=== PATIENT | female | born 1980 | race Two or more races ===

== ENCOUNTER 2017-01-16 12:58 | Emergency (ER) | payer OTHER ==
[2017-01-16 13:16] VITALS: TEMP 98.7; BMI 36.0
--- NOTE | 2017-01-16 16:01 | PDOC ---
History of Present Illness - General History Source: Patient Exam Limitations: No Limitations - History of Present Illness Initial Comments: 01/16/17 17:05 The patient is a 36 year old female, LMP 01/06/17, with no significant past medical history, who presents to the ER with throat tightness and right abdominal pain that radiates to the right flank for several days. Patient states she developed throat tightness two weeks ago with burning in the chest that rises up. She states she developed right upper quadrant pain that radiates to the right flank several days ago. Patient states she has an IUD. She denies nausea, vomiting, diarrhea, fever, chills, or cough. <Alia Jarquin - Last Filed: 01/16/17 17:07> <Maria Esther Torres - Last Filed: 01/16/17 21:36> - General Chief Complaint: Pain, Acute Stated Complaint: ABD PAIN THROAT PAIN, RT SIDE PAIN Time Seen by Provider: 01/16/17 15:22 Past History <Alia Jarquin - Last Filed: 01/16/17 17:07> - Past Medical History Asthma: No Cancer: No Cardiac Disorders: No Diabetes: No (DENIES) HTN: No Suicide Attempt (Hx): No Seizures: No Thyroid Disease: No - Surgical History Abdominal Surgery: Yes (ENDOMETRIOSIS) - Immunization History TDAP Vaccination: No Immunization Up to Date: Yes - Psycho/Social/Smoking Cessation Hx Anxiety: No Suicidal Ideation: No Smoking History: Never smoked Have you smoked in the past 12 months: No Information on smoking cessation initiated: No Hx Alcohol Use: No Drug/Substance Use Hx: No Substance Use Type: None Hx Substance Use Treatment: No <Maria Esther Torres - Last Filed: 01/16/17 21:36> - Past Medical History Allergies/Adverse Reactions: Allergies Allergy/AdvReac Type Severity Reaction Status Date / Time No Known Drug Allergies Allergy Verified 01/16/17 13:11 Home Medications: Ambulatory Orders Famotidine [Pepcid -] 20 mg PO DAILY #30 tablet 01/16/17 Review of Systems - Review of Systems Able to Perform ROS?: Yes Comments:: 01/16/17 17:05 GENERAL/CONSTITUTIONAL: No fever or chills. No weakness. HEAD, EYES, EARS, NOSE AND THROAT: Throat tightness. No change in vision. No ear pain or discharge. CARDIOVASCULAR: No chest pain or shortness of breath. RESPIRATORY: No cough, wheezing, or hemoptysis. GASTROINTESTINAL: RUQ pain. No nausea, vomiting, diarrhea or constipation. GENITOURINARY: No dysuria, frequency, or change in urination. MUSCULOSKELETAL: No joint or muscle swelling or pain. No neck or back pain. SKIN: No rash NEUROLOGIC: No headache, vertigo, loss of consciousness, or change in strength/ sensation. ENDOCRINE: No increased thirst. No abnormal weight change. HEMATOLOGIC/LYMPHATIC: No anemia, easy bleeding, or history of blood clots. ALLERGIC/IMMUNOLOGIC: No hives or skin allergy. <Njs,Alia - Last Filed: 01/16/17 17:07> *Physical Exam - Vital Signs Last Vital Signs Temp Pulse Resp BP Pulse Ox 98.7 F 87 18 128/83 100 01/16/17 13:13 01/16/17 13:13 01/16/17 13:13 01/16/17 13:13 01/16/17 13:13 - Physical Exam Comments: 01/16/17 17:06 GENERAL: Awake, alert, and fully oriented, in no acute distress HEAD: No signs of trauma EYES: PERRLA, EOMI, sclera anicteric, conjunctiva clear ENT: Auricles normal inspection, hearing grossly normal, nares patent, oropharynx clear without exudates. Moist mucosa NECK: Normal ROM, supple, no lymphadenopathy, JVD, or masses LUNGS: Breath sounds equal, clear to auscultation bilaterally. No wheezes, and no crackles HEART: Regular rate and rhythm, normal S1 and S2, no murmurs, rubs or gallops ABDOMEN: RUQ tenderness with guarding, no rebound. Soft, normoactive bowel sounds. No rebound. No masses EXTREMITIES: Normal range of motion, no edema. No clubbing or cyanosis. No cords, erythema, or tenderness NEUROLOGICAL: Cranial nerves II through XII grossly intact. Normal speech, normal gait SKIN: Warm, Dry, normal turgor, no rashes or lesions noted. <Njs,Alia - Last Filed: 01/16/17 17:07> - Vital Signs Last Vital Signs Temp Pulse Resp BP Pulse Ox 98.7 F 87 18 128/83 100 01/16/17 13:13 01/16/17 13:13 01/16/17 13:13 01/16/17 13:13 01/16/17 13:13 <Maria Esther Torres - Last Filed: 01/16/17 21:36> ED Treatment Course - LABORATORY CBC & Chemistry Diagram: 01/16/17 16:20 01/16/17 16:20 - ADDITIONAL ORDERS Additional order review: Laboratory Results 01/16/17 01/16/17 16:20 16:20 Urine Color Ltyellow Urine Appearance Clear Urine pH 5.0 D Ur Specific [place] 1.016 Urine Protein Negative Urine Glucose (UA) Negative Urine Ketones Trace H Urine Blood Negative Urine Nitrite Negative Urine Bilirubin Negative Urine Urobilinogen Negative Ur Leukocyte Esterase Negative Urine HCG, Qual Negative 01/16/17 16:20 RBC 4.57 D MCV 91.1 MCHC 32.7 RDW 13.7 MPV 10.0 Neutrophils % 70.7 Lymphocytes % 23.3 D Monocytes % 5.1 Eosinophils % 0.4 D Basophils % 0.5 D - Medications Given in the ED: ED Medications Discontinued Medications Generic Name Dose Route Start Last Admin Trade Name Freq PRN Reason Stop Dose Admin Famotidine/Sodium Chloride 50 mls @ 100 mls/hr 01/16/17 16:02 01/16/17 16:32 Pepcid 20 Mg Premixed Ivpb - IVPB 01/16/17 16:31 100 mls/hr ONCE ONE Administration Sodium Chloride 1,000 mls @ 1,000 mls/hr 01/16/17 16:02 01/16/17 16:32 Normal Saline - IV 01/16/17 17:01 1,000 mls/hr ASDIR STA Administration <UtsAlia - Last Filed: 01/16/17 17:07> - LABORATORY CBC & Chemistry Diagram: 01/16/17 16:20 01/16/17 16:20 <Maria Esther Torres - Last Filed: 01/16/17 21:36> Medical Decision Making - Medical Decision Making 01/16/17 17:[address] Smith at 5pm shift change. Presented with abd pain associated with PO intake. CBC and UA resulted, CMP is pending. She declined pain medication. I have given H2 britney, as she has been having heartburn symptoms. She is currently in ultrasound for RUQ sono. DDx includes biliary colic, acute nnamdi, GERD. Reassess after ultrasound. <Maria Esther Torres - Last Filed: 01/16/17 21:36> *DC/Admit/Observation/Transfer - Attestations Scribe Attestion: 01/16/17 17:06 Documentation prepared by Alia Jarquin, acting as medical case manager for Maria Esther Torres MD. <Alia Jarquin - Last Filed: 01/16/17 17:07> <Maria Esther Torres - Last Filed: 01/16/17 21:36> Diagnosis at time of Disposition: Epigastric pain - Discharge Dispostion Disposition: HOME Condition at time of disposition: Stable - Prescriptions Prescriptions: Famotidine [Pepcid -] 20 mg PO DAILY #30 tablet - Referrals Referrals: Demarcus Gutierrez MD [Primary Care Provider] - - Patient Instructions Printed Discharge Instructions: DI for Abdominal Pain-Adult Additional Instructions: Please follow-up with your primary care physician within one week. You're being prescribed Pepcid 20 mgplease take 1 tablet daily for the next 30 days. Return to the emergency department if your symptoms persist, worsen, or new symptoms arise.
[2017-01-16] MEDS ORDERED: SODIUM CHLORIDE 1,000 ML IV STA (16:02)
[2017-01-16] MEDS ORDERED: FAMOTIDINE 20 MG/50 ML IVPB 50 ML IVPB ONE ×2 (16:02→16:29)
[2017-01-16 16:30] LABS: BASOPHIL 0.5 % (0-2.0); EOSINOPHIL 0.4 % (0-4.5); MCH 29.8 pg (25.7-33.7); MCHC 32.7 g/dl (32.0-36.0); MEAN CELL VOLUME 91.1 fl (80-96); NEUTROPHILS 70.7 % (42.8-82.8); PLATELET COUNT 200 K/MM3 (134-434); RDW 13.7 % (11.6-15.6); WHITE BLOOD COUNT 12.9 K/mm3 (4.0-10.0)
[2017-01-16 16:41] LABS: URINE APPEARANCE CLEAR; URINE BILIRUBIN NEGATIVE (NEGATIVE); URINE BLOOD NEGATIVE (NEGATIVE); URINE COLOR LTYELLOW; URINE GLUCOSE (UA) NEGATIVE (NEGATIVE); URINE KETONE TRACE (NEGATIVE); URINE LEUK ESTERASE NEGATIVE (NEGATIVE); URINE NITRITE NEGATIVE (NEGATIVE); URINE PROTEIN NEGATIVE (NEGATIVE); URINE UROBILINOGEN NEGATIVE E.U./dl (0.2-1.0)
[2017-01-16 17:02] LABS: ALBUMIN 4.1 g/dl (3.4-5.0); ANION GAP 9 (8-16); BILIRUBIN,TOTAL 0.3 mg/dL (0.2-1.0); CO2 26 mmol/L (21-32); CREATININE 0.7 mg/dL (0.55-1.02); GLUCOSE,RANDOM 88 mg/dL (74-106); SGOT/AST 12 U/L (15-37); SGPT/ALT 24 U/L (12-78); TOT PROT 7.4 g/dl (6.4-8.2)
[2017-01-16 17:03] LABS: ALK PHOS 83 U/L (45-117)
--- NOTE | 2017-01-16 19:06 | PDOC ---
*Physical Exam - Vital Signs Last Vital Signs Temp Pulse Resp BP Pulse Ox 98.7 F 108 H 19 157/74 100 01/16/17 13:13 01/16/17 17:13 01/16/17 17:13 01/16/17 17:13 01/16/17 17:13 ED Treatment Course - LABORATORY CBC & Chemistry Diagram: 01/16/17 16:20 01/16/17 16:20 - ADDITIONAL ORDERS Additional order review: Laboratory Results 01/16/17 01/16/17 01/16/17 16:20 16:20 16:20 Sodium 138 Potassium 4.0 Chloride 103 Carbon Dioxide 26 Anion Gap 9 BUN 12 D Creatinine 0.7 D Creat Clearance w eGFR > 60 Random Glucose 88 D Calcium 9.0 Total Bilirubin 0.3 D AST 12 L ALT 24 Alkaline Phosphatase 83 Total Protein 7.4 D Albumin 4.1 D Lipase 72 L Urine Color Ltyellow Urine Appearance Clear Urine pH 5.0 D Ur Specific [place] 1.016 Urine Protein Negative Urine Glucose (UA) Negative Urine Ketones Trace H Urine Blood Negative Urine Nitrite Negative Urine Bilirubin Negative Urine Urobilinogen Negative Ur Leukocyte Esterase Negative Urine HCG, Qual Negative 01/16/17 16:20 RBC 4.57 D MCV 91.1 MCHC 32.7 RDW 13.7 MPV 10.0 Neutrophils % 70.7 Lymphocytes % 23.3 D Monocytes % 5.1 Eosinophils % 0.4 D Basophils % 0.5 D - Medications Given in the ED: ED Medications Discontinued Medications Generic Name Dose Route Start Last Admin Trade Name Freq PRN Reason Stop Dose Admin Famotidine/Sodium Chloride 50 mls @ 100 mls/hr 01/16/17 16:02 01/16/17 16:32 Pepcid 20 Mg Premixed Ivpb - IVPB 01/16/17 16:31 100 mls/hr ONCE ONE Administration Sodium Chloride 1,000 mls @ 1,000 mls/hr 01/16/17 16:02 01/16/17 16:32 Normal Saline - IV 01/16/17 17:01 1,000 mls/hr ASDIR STA Administration Progress Note - Progress Note Progress Note: This patient was endorsed to me at [address] Torres. The patient is a 36- year-old female who presented to the emergency Department with complaints of epigastric and right upper quadrant pain. Labs are significant for an elevated white blood cell count and therefore a right upper quadrant ultrasound was obtained. The ultrasound showed a normal gallbladder with no stones or sludge within the gallbladder. Abnormal gallbladder wall and a normal common bile duct. I have reevaluated the patient at this time and she is feeling improved. Her abdomen is soft and nontender. The patient feels that the Pepcid has helped her. I will discharge home with Pepcid 20 mg by mouth daily. I have advised the patient to follow-up with Dr. Gutierrez within the next week. I have also advised the patient to return to the emergency department if her symptoms persist, worsen, or new symptoms arise. *DC/Admit/Observation/Transfer Diagnosis at time of Disposition: Epigastric pain - Discharge Dispostion Disposition: HOME Condition at time of disposition: Stable Admit: No - Prescriptions Prescriptions: Famotidine [Pepcid -] 20 mg PO DAILY #30 tablet - Referrals Referrals: Demarcus Gutierrez MD [Primary Care Provider] - - Patient Instructions Additional Instructions: Please follow-up with your primary care physician within one week. You're being prescribed Pepcid 20 mgplease take 1 tablet daily for the next 30 days. Return to the emergency department if your symptoms persist, worsen, or new symptoms arise. - Post Discharge Activity
[2017-01-16 19:16] VITALS: BP 130/80; PULSE 93
== END 2017-01-16 20:30 | disposition home or self-care (01) ==
LOC: JER 12:58
PROC: 3E033GC Introduction of Other Therapeutic Substance into Peripheral Vein, Percutaneous Approach (ICD-10-PCS; principal; 2017-01-16)
DX: R10.11 Right upper quadrant pain (principal)
CPT/HCPCS: 36415; 76705-TC; 80053; 81003; 83690; 84703; 85025; 99282-25

== ENCOUNTER 2019-08-13 10:30 | Emergency (ER) | payer OTHER ==
[2019-08-13 10:34] VITALS: TEMP 97.4; BMI 41.9
[2019-08-13] MEDS ORDERED: SODIUM CHLORIDE 1,000 ML IV STA ×2 (11:08→12:19)
[2019-08-13] MEDS ORDERED: ONDANSETRON 4 MG/2 ML VIAL IVPUSH ONE (11:08)
[2019-08-13] MEDS ORDERED: KETOROLAC TROMETHAMINE 30 MG/1 ML VIAL IVPUSH ONE (11:08)
[2019-08-13] MEDS ORDERED: KETOROLAC TROMETHAMINE 30 MG/1 ML VIAL ONE (11:11)
[2019-08-13] MEDS ORDERED: ONDANSETRON 4 MG/2 ML VIAL ONE (11:11)
[2019-08-13 11:13] LABS: EPI CELLS 12.9 /HPF (0-5/HPF); HYALINE CASTS 8 /lpf (0-8); URINE APPEARANCE CLOUDY; URINE BACTERIA 299.4 /hpf (NEGATIVE); URINE BILIRUBIN NEGATIVE (NEGATIVE); URINE COLOR YELLOW; URINE GLUCOSE (UA) NEGATIVE (NEGATIVE); URINE KETONE TRACE (NEGATIVE); URINE LEUK ESTERASE NEGATIVE (NEGATIVE); URINE NITRITE NEGATIVE (NEGATIVE); URINE PROTEIN 1+ (NEGATIVE); URINE RBC 18 /hpf (0-4); URINE WBC 4 /hpf (0-5)
[2019-08-13 11:32] LABS: BASO % 0.4 % (0-2.0); EOS % 2.6 % (0-4.5); HEMATOCRIT 39.1 % (32.4-45.2); HEMOGLOBIN 12.8 GM/dL (10.7-15.3); MCH 30.8 pg (25.7-33.7); MCHC 32.8 g/dl (32.0-36.0); MEAN PLT VOLUME 9.7 fl (7.5-11.1); MONO % 4.3 % (3.8-10.2); NEUT % 65.7 % (42.8-82.8); PLATELET COUNT 217 K/MM3 (134-434); RBC 4.16 M/mm3 (3.60-5.2); RDW 13.4 % (11.6-15.6); WHITE BLOOD COUNT 11.7 K/mm3 (4.0-10.0)
--- NOTE | 2019-08-13 11:48 | PDOC ---
History of Present Illness - General Chief Complaint: Pain, Acute Stated Complaint: RIGHT SIDE PAIN Time Seen by Provider: 08/13/19 10:46 History Source: Patient Exam Limitations: No Limitations - History of Present Illness Travel History: No Initial Comments: 08/13/19 11:04 39-year-old female presents to ED with complaints of right flank pain with mild nausea and dark colored urine since yesterday. Patient denies fever, chills, history of kidney stones, gallstones, GI disorders or recent travel. Patient has not taken anything for the pain and denies recent change in diet. Timing/Duration: reports: constant Quality: reports: moderate, cramping, sharpness Abdominal Pain Onset Location: reports: flank Pain Radiation: reports: RLQ, back Activities at Onset: reports: none Aggravating Factors: improves with: None Alleviating Factors: improves with: None Past History - Travel Traveled outside of the country in the last 30 days: No Close contact w/someone who was outside of country & ill: No - Past Medical History Allergies/Adverse Reactions: Allergies Allergy/AdvReac Type Severity Reaction Status Date / Time No Known Drug Allergies Allergy Verified 08/13/19 10:34 Home Medications: Ambulatory Orders NK [No Known Home Medication] 08/13/19 Asthma: No Cancer: No Cardiac Disorders: No COPD: No Diabetes: No (DENIES) HTN: No Seizures: No Thyroid Disease: No Other medical history: GRAVES DIS - Surgical History Abdominal Surgery: Yes (ENDOMETRIOSIS) - Immunization History TDAP Vaccination: No Immunization Up to Date: Yes - Suicide/Smoking/Psychosocial Hx Smoking History: Never smoked Have you smoked in the past 12 months: No Information on smoking cessation initiated: No Hx Alcohol Use: No Drug/Substance Use Hx: No Substance Use Type: None Hx Substance Use Treatment: No Patient Lives Alone: No Lives with/in: spouse/SO Review of Systems - Review of Systems Able to Perform ROS?: Yes Constitutional: No: Symptoms Reported HEENTM: No: Symptoms Reported Respiratory: No: Symptoms reported Cardiac (ROS): No: Symptoms Reported ABD/GI: Yes: Nausea, Abdominal cramping : Yes: Flank Pain, Other Musculoskeletal: No: Symptoms Reported Integumentary: No: Symptoms Reported Neurological: No: Symptoms reported Hematologic/Lymphatic: No: Symptoms Reported *Physical Exam - Vital Signs Last Vital Signs Temp Pulse Resp BP Pulse Ox 97.4 F L 72 19 144/102 H 97 08/13/19 10:31 08/13/19 10:31 08/13/19 10:31 08/13/19 10:31 08/13/19 10:31 - Physical Exam General Appearance: Yes: Nourished, Appropriately Dressed. No: Apparent Distress HEENT: negative: Pale Conjunctivae Neck: positive: Normal Thyroid Respiratory/Chest: positive: Lungs Clear, Normal Breath Sounds. negative: Respiratory Distress, Accessory Muscle Use Cardiovascular: positive: Regular Rhythm, Regular Rate. negative: Murmur Gastrointestinal/Abdominal: positive: Soft, Tenderness (right suprapubic, right lower quadrant right flank) Musculoskeletal: positive: CVA Tenderness (R) Integumentary: positive: Normal Color, Warm, Moist Neurologic: positive: Motor Strength 5/5 (ambulatory) ED Treatment Course - LABORATORY CBC & Chemistry Diagram: 08/13/19 11:15 08/13/19 11:15 - ADDITIONAL ORDERS Additional order review: Laboratory Results 08/13/19 08/13/19 11:00 11:00 Urine Color Yellow Urine Appearance Cloudy Urine pH 5.0 Ur Specific [place] 1.033 Urine Protein 1+ H Urine Glucose (UA) Negative Urine Ketones Trace H Urine Blood 1+ H Urine Nitrite Negative Urine Bilirubin Negative Urine Urobilinogen 1.0 Ur Leukocyte Esterase Negative Urine WBC (Auto) 4 Urine RBC (Auto) 18 Urine Casts (Auto) 8 U Epithel Cells (Auto) 12.9 Urine Bacteria (Auto) 299.4 Urine HCG, Qual Negative 08/13/19 11:15 RBC 4.16 MCV 94.0 MCHC 32.8 RDW 13.4 MPV 9.7 Neutrophils % 65.7 Lymphocytes % 27.0 Monocytes % 4.3 Eosinophils % 2.6 D Basophils % 0.4 - RADIOLOGY Radiology Studies Ordered: Category Date Time Status SPIRAL- RENAL-STONE CT [CT] Stat CT Scan 08/13/19 11:07 Ordered PELVIC / BLADDER US [US] Stat Ultrasound 08/13/19 11:08 Ordered - Medications Given in the ED: ED Medications Discontinued Medications Generic Name Dose Route Start Last Admin Trade Name Freq PRN Reason Stop Dose Admin Ketorolac Tromethamine 30 mg 08/13/19 11:08 08/13/19 11:14 Toradol Injection - IVPUSH 08/13/19 11:09 30 mg ONCE ONE Administration Ondansetron HCl 4 mg 08/13/19 11:08 08/13/19 11:14 Zofran Injection IVPUSH 08/13/19 11:09 4 mg ONCE ONE Administration Medical Decision Making - Medical Decision Making 08/13/19 11:07 Right flank and right back pain with dark colored urine for the past few days now associated nausea. No other complaints. Exam. Patient with right CVA right flank, right suprapubic and right lower quadrant tenderness on exam. Vital signs stable. Plan: Labs, urine, antiemetics, Toradol, IV fluids spiral CT along with pelvic ultrasound 08/13/19 13:50 Patient states feeling better after receiving morphine. Patient given second liter of fluid. Patient will be given Flomax, Motrin 600s along with referral to urologist. Patient states has familial history with her sister having kidney stones along with risk factors such as sedentary lifestyle sitting at a desk majority of her day and drinking at least 7-8 cups of coffee a day *DC/Admit/Observation/Transfer Diagnosis at time of Disposition: Renal colic on right side - Discharge Dispostion Disposition: HOME Condition at time of disposition: Improved - Referrals Referrals: Rodolfo Hilario MD [Staff Physician] - - Patient Instructions Printed Discharge Instructions: DI for Kidney Stones Additional Instructions: Please drink plenty of water at least 2 liters a day. Cut back on coffee. Walk around during the day while at work. Follow up with urologist. Take medications as prescribed - Post Discharge Activity
[2019-08-13 11:59] LABS: ALBUMIN 3.8 g/dl (3.4-5.0); BILIRUBIN,TOTAL 0.3 mg/dL (0.2-1); BLOOD UREA NITROGEN 15.3 mg/dL (7-18); CALCIUM 8.9 mg/dL (8.5-10.1); CREATININE 1.1 mg/dL (0.55-1.3); POTASSIUM 4.1 mmol/L (3.5-5.1); TOT PROT 6.7 g/dl (6.4-8.2)
[2019-08-13] MEDS ORDERED: morphine CARPU-JECT 2 MG/1 ML DISP.SYRIN IVPUSH ONE (12:19)
[2019-08-13] MEDS ORDERED: MORPHINE SULFATE 2 MG/ML VIAL ONE (12:24)
--- NOTE | 2019-08-13 13:45 | PDOC ---
*Physical Exam - Vital Signs Last Vital Signs Temp Pulse Resp BP Pulse Ox 97.4 F L 72 19 144/102 H 97 08/13/19 10:31 08/13/19 10:31 08/13/19 10:31 08/13/19 10:31 08/13/19 10:31 ED Treatment Course - LABORATORY CBC & Chemistry Diagram: 08/13/19 11:15 08/13/19 11:15 - ADDITIONAL ORDERS Additional order review: Laboratory Results 08/13/19 08/13/19 08/13/19 11:15 11:00 11:00 Sodium 140 Potassium 4.1 Chloride 106 Carbon Dioxide 28 Anion Gap 6 L BUN 15.3 Creatinine 1.1 Est GFR (CKD-EPI)AfAm 72.22 Est GFR (CKD-EPI)NonAf 62.31 Random Glucose 150 H Calcium 8.9 Total Bilirubin 0.3 AST 21 ALT 34 Alkaline Phosphatase 123 H Total Protein 6.7 Albumin 3.8 Lipase 59 L Urine Color Yellow Urine Appearance Cloudy Urine pH 5.0 Ur Specific [place] 1.033 Urine Protein 1+ H Urine Glucose (UA) Negative Urine Ketones Trace H Urine Blood 1+ H Urine Nitrite Negative Urine Bilirubin Negative Urine Urobilinogen 1.0 Ur Leukocyte Esterase Negative Urine WBC (Auto) 4 Urine RBC (Auto) 18 Urine Casts (Auto) 8 U Epithel Cells (Auto) 12.9 Urine Bacteria (Auto) 299.4 Urine HCG, Qual Negative 08/13/19 11:15 RBC 4.16 MCV 94.0 MCHC 32.8 RDW 13.4 MPV 9.7 Neutrophils % 65.7 Lymphocytes % 27.0 Monocytes % 4.3 Eosinophils % 2.6 D Basophils % 0.4 - Medications Given in the ED: ED Medications Discontinued Medications Generic Name Dose Route Start Last Admin Trade Name Freq PRN Reason Stop Dose Admin Sodium Chloride 1,000 mls @ 1,000 mls/hr 08/13/19 11:08 08/13/19 11:14 Normal Saline - IV 08/13/19 12:07 1,000 mls/hr ASDIR STA Administration Sodium Chloride 1,000 mls @ 1,000 mls/hr 08/13/19 12:19 08/13/19 12:37 Normal Saline - IV 08/13/19 13:18 1,000 mls/hr ASDIR STA Administration Ketorolac Tromethamine 30 mg 08/13/19 11:08 08/13/19 11:14 Toradol Injection - IVPUSH 08/13/19 11:09 30 mg ONCE ONE Administration Morphine Sulfate 2 mg 08/13/19 12:19 08/13/19 12:37 Morphine Injection - IVPUSH 08/13/19 12:20 2 mg ONCE ONE Administration Ondansetron HCl 4 mg 08/13/19 11:08 08/13/19 11:14 Zofran Injection IVPUSH 08/13/19 11:09 4 mg ONCE ONE Administration Medical Decision Making - Medical Decision Making 08/13/19 13:45 The patient was seen and evaluated in conjunction with JULISSA Styles under my direct supervision, ancillary studies were reviewed. I agree with the plan as outlined by JULISSA Styles. 39y F presenting with righ flank pain with nausea/dark urine wihou asociaed fever/chill, dysuria, foul smelling urine. pt with mild abd ttp, no rebound/guarding, othewise non toxic labs reivewed noted for hematuria ct c/w 2-3mm stone no stranding o other signs of pyelo pt feeling improved will dc the pt to fu with urology return precauions were discussed *DC/Admit/Observation/Transfer Diagnosis at time of Disposition: Renal colic on right side - Discharge Dispostion Disposition: HOME Condition at time of disposition: Improved - Prescriptions Prescriptions: Ibuprofen [Motrin -] 600 mg PO TID PRN #21 tablet PRN Reason: Pain Tamsulosin HCl [Flomax] 0.4 mg PO DAILY #7 cap.er.24h - Referrals Referrals: Rodolfo Hilario MD [Staff Physician] - - Patient Instructions Printed Discharge Instructions: DI for Kidney Stones Additional Instructions: Please drink plenty of water at least 2 liters a day. Cut back on coffee. Walk around during the day while at work. Follow up with urologist. Take medications as prescribed - Post Discharge Activity
[2019-08-13 14:23] VITALS: BP 122/77; PULSE 86
== END 2019-08-13 14:23 | disposition home or self-care (01) ==
LOC: JER 10:30
PROC: 3E033GC Introduction of Other Therapeutic Substance into Peripheral Vein, Percutaneous Approach (ICD-10-PCS; principal; 2019-08-13)
PROC: 3E033NZ Introduction of Analgesics, Hypnotics, Sedatives into Peripheral Vein, Percutaneous Approach (ICD-10-PCS; 2019-08-13)
PROC: 3E0333Z Introduction of Anti-inflammatory into Peripheral Vein, Percutaneous Approach (ICD-10-PCS; 2019-08-13)
DX: N20.0 Calculus of kidney (principal)
CPT/HCPCS: 36415; 74176-TC; 80053; 81003; 83690; 84703; 85025; 87086; 96374; 96375; 99283-25; J7030